=== PATIENT | female | born 1985 | race Caucasian/White ===

== ENCOUNTER 2019-09-24 13:59 | Outpatient (CLI) | payer BC ==
--- NOTE | 2019-09-24 15:35 | MRI ---
MR of the left shoulder without contrast INDICATION: Left shoulder pain. Impingement syndrome of the left shoulder TECHNIQUE: Sagittal T1, axial and coronal PD fat sat, sagittal and coronal T2 fat sat images were obt ained of the left shoulder. COMPARISON: None FINDINGS: Rotator cuff: Intact. Glenohumeral joint: Articular cartilage is intact. Glenoid labrum: There is a full-thickness tear involving the posterior inferior glenoid labrum with a small associated para labral cyst measuring 0.3 cm on image 22 series 3. There is a lobular high T2 signal abnormality that extends from the spinoglenoid notch along the posterior margin of the deena oid likely related to the patient's vasculature. This isn't not likely a dissecting para labral cyst extending into the spinoglenoid notch. Biceps tendon and biceps anchor: Intact and located. Acromion clavicular joint: normal Subacromial subdeltoid space: Small amount of physiologic fluid. Axillary region: No lymphadenopathy. Surrounding shoulder musculature: Normal. No evidence of atrophy or strain. IMPRESSION: 1. Full-thickness posterior inferior glenoid labral tear with small para labral cyst
== END 2019-09-24 14:00 | disposition home or self-care (01) ==
LOC: SCSMRI 13:59
PROVIDERS: ATTEND Family Medicine Sports Medicine
DX: M75.42 Impingement syndrome of left shoulder (principal); S43.432A Superior glenoid labrum lesion of left shoulder, initial encounter; M25.812 Other specified joint disorders, left shoulder